=== PATIENT | female | born 1990 | race Caucasian/White ===

== ENCOUNTER 2017-10-01 19:55 | Inpatient (IN) | payer OTHER ==
[~2017-10-01] VITALS: Ht 162 cm; Wt 61.2 kg
[~2017-10-01 19:55] MED LIST: MO6B PO; PREN1TAB80 PO
[2017-10-01] MEDS ORDERED: PREN1TAB89 PO (20:54)
[2017-10-01 20:57] VITALS: BP 111/68
[2017-10-01] MEDS ORDERED: RINGERS SOLUTION,LACTATED 1,000 ML IV SCH (21:22)
[2017-10-01] MEDS ORDERED: RINGERS SOLUTION,LACTATED 1,000 ML IV PRN (21:22)
[2017-10-01] MEDS ORDERED: METOCLOPRAMIDE HCL 5 MG/ML 2 ML VIAL IVP PRN (21:30)
[2017-10-01] MEDS ORDERED: CITRIC ACID/SODIUM CITRATE 30 ML SOLUTION UDCUP PO PRN (21:30)
[2017-10-01 22:01] VITALS: BP 111/68
[2017-10-01] MEDS ORDERED: OXYTOCIN 30 UNITS/LACT RINGERS 500 ML IV PRN (22:14)
[2017-10-01] MEDS ORDERED: INFLUENZA VIRUS VACCINE QVS 2017-18 (3YR+)/PF 60 MCG/0.5 ML SYRINGE IM ONE (22:15)
[2017-10-02] MEDS ORDERED: LIDOCAINE HCL/PF 1% 30 ML VIAL INJ PRN
[2017-10-02] MEDS ORDERED: FentaNYL CITRATE-PF 100 MCG/2 ML VIAL IVP PRN
[2017-10-02 00:21] LABS: BASOPHILS % (AUTO) 0.6 % (0.0-2.0); EOSINOPHILS % (AUTO) 0.8 % (1.0-6.0); LYMPHOCYTES # (AUTO) 2.4 K/uL (1.0-4.8); LYMPHOCYTES % (AUTO) 26.9 % (22.0-44.0); MEAN CORPUSCULAR HEMOGLOBIN 27.8 pg (26.0-34.0); MEAN CORPUSCULAR HGB CONC 33.3 G/dL (31.0-37.0); MEAN CORPUSCULAR VOLUME 84 fL (80-100); MONOCYTES # (AUTO) 0.5 K/uL (0.1-1.0); MONOCYTES % (AUTO) 5.9 % (2.0-9.0); NEUTROPHILS # (AUTO) 5.8 K/uL (1.8-7.7); NEUTROPHILS % (AUTO) 65.8 % (40.0-70.0); PLATELET COUNT (AUTO)-OB 226 K/uL (150-450); RED CELL DISTRIBUTION WIDTH 17.6 % (11.5-14.5)
[2017-10-02] MEDS ORDERED: ROPIVACAINE HCL 0.2% 100 ML ED ONE (00:39)
[2017-10-02] MEDS ORDERED: LIDOCAINE HCL/PF 2% 5 ML VIAL ONE (00:39)
[2017-10-02 01:01] LABS: PLATELET MORPHOLOGY COMMENT LARGE PLTS PRESENT
[2017-10-02] MEDS ORDERED: ROPIVACAINE HCL 0.2% 100 ML ED PRN (01:12)
[2017-10-02] MEDS ORDERED: NALBUPHINE HCL 10 MG/ML VIAL IVP PRN (01:15)
[2017-10-02] MEDS ORDERED: PROMETHAZINE HCL 12.5 MG in SODIUM CHLORIDE 0.9% 50 ML IV PRN (01:15)
[2017-10-02] MEDS ORDERED: DiphenhydrAMINE HCL 50 MG/ML VIAL IVP PRN (01:15)
[2017-10-02] MEDS ORDERED: ONDANSETRON HCL 4 MG/2 ML VIAL IVP PRN (01:15)
[2017-10-02] MEDS ORDERED: RINGERS SOLUTION,LACTATED 1,000 ML IV ONE (03:18)
[2017-10-02] MEDS ORDERED: BENZOCAINE 20%/MENTHOL 56 GM SPRAY CANISTER TP PRN (03:30)
[2017-10-02] MEDS ORDERED: LANOLIN 7 GM OINTMENT TP PRN (03:30)
[2017-10-02] MEDS ORDERED: OxyCODONE HCL/ACETAMINOPHEN 5-325 MG TABLET PO PRN ×2 (03:30)
[2017-10-02] MEDS ORDERED: GLYCERIN/WITCH HAZEL LEAF 40 PADS JAR TP PRN (03:30)
[2017-10-02] MEDS ORDERED: MEASLES/MUMPS/RUBELLA VACCINE, LIVE 0.5 ML/VIAL SQ ONE (03:30)
[2017-10-02] MEDS ORDERED: IBUPROFEN 600 MG TABLET PO PRN (03:30)
[2017-10-02] MEDS ORDERED: OXYGEN THERAPY IH SCH (08:00)
[2017-10-02] MEDS: MAGNESIUM HYDROXIDE SUSPENSION 30 ML UDCUP PO SCH ×2 (09:00→20:30)
[2017-10-03] MEDS ORDERED: DSS100 PO (10:19)
== END 2017-10-03 13:40 | disposition home or self-care (01) | DRG 775 ==
LOC: 4S 19:55 → OBSVTOIN 19:55
PROVIDERS: ADMIT Obstetrics & Gynecology; ATTEND Obstetrics & Gynecology
PROC: 10E0XZZ Delivery of Products of Conception, External Approach (ICD-10-PCS; principal; 2017-10-02)
PROC: 0HQ9XZZ Repair Perineum Skin, External Approach (ICD-10-PCS; 2017-10-02)
PROC: 3E0R3BZ Introduction of Anesthetic Agent into Spinal Canal, Percutaneous Approach (ICD-10-PCS; 2017-10-02)
PROC: 00HU33Z Insertion of Infusion Device into Spinal Canal, Percutaneous Approach (ICD-10-PCS; 2017-10-02)
DX: O42.92 Full-term premature rupture of membranes, unspecified as to length of time between rupture and onset of labor (principal); O70.0 First degree perineal laceration during delivery; Z3A.37 37 weeks gestation of pregnancy; Z37.0 Single live birth; Z79.899 Other long term (current) drug therapy
CPT/HCPCS: 86850; 86900; 86901; J2590; J2795; J3490; J7120